=== PATIENT | female | born 1970 | race Two or more races ===

== ENCOUNTER 2020-10-04 09:32 | Emergency (ER) | payer OTHER ==
[~2020-10-04] VITALS: Ht 152.4 cm; Wt 75.5 kg
[2020-10-04] MEDS ORDERED: MECLIZINE HCL 12.5 MG TABLET. PO ONE (10:45)
[2020-10-04 11:09] LABS: BASO % 0 % (0-3); EOS # 0.1 x10^3/uL (0.0-0.7); EOS % 1 % (0-3); HEMATOCRIT 44.2 % (36.0-47.0); HEMOGLOBIN 14.9 g/dL (12.0-15.5); LYMPH # 2.4 x10^3/uL (1.0-4.8); LYMPH % 31 % (24-48); MEAN CORPUSCULAR HEMOGLOBIN 33 pg (25-35); MEAN CORPUSCULAR HGB CONC 34 g/dL (31-37); MEAN CORPUSCULAR VOLUME 97 fL (79-100); MONO # 0.6 x10^3/uL (0.0-1.1); MONO % 7 % (0-9); NEUT # 4.5 x10^3/uL (1.8-7.7); NEUT % 60 % (31-73); PLATELET COUNT 260 x10^3/uL (140-400); RED BLOOD COUNT 4.57 x10^6/uL (3.50-5.40); RED CELL DISTRIBUTION WIDTH 12.9 % (11.5-14.5); WHITE BLOOD COUNT 7.6 x10^3/uL (4.0-11.0)
[2020-10-04 11:09] LABS: BARBITURATES NEG (NEG); BENZODIAZEPINES NEG (NEG); CANNABINOIDS NEG (NEG); COCAINE NEG (NEG); METHADONE NEG (NEG); OPIATES NEG (NEG); PHENCYCLIDINE NEG (NEG)
[2020-10-04 11:11] LABS: AMPHETAMINE/METHAMPHETAMINE NEG (NEG)
--- NOTE | 2020-10-04 11:13 | RAD ---
INDICATION: Reason: dizziness / Spl. Instructions: / History: COMPARISON: None. FINDINGS: Single view of chest obtained. Mild interstitial prominence lung bases Cardiac silhouette is unremarkable. Degenerative changes the spine. IMPRESSION: * Minimal interstitial prominence at the lung bases. Could be from atelectasis with infiltrate in th e differential as well. Electronically signed by: Broderick Bragg MD (10/04/2020 11:10 AM) [id number]
[2020-10-04 11:29] LABS: CALCIUM 9.3 mg/dL (8.5-10.1); CREATININE 0.8 mg/dL (0.6-1.0); GFR 76.2; POTASSIUM 3.7 mmol/L (3.5-5.1)
[2020-10-04 11:34] LABS: ALBUMIN 4.6 g/dL (3.4-5.0); ALBUMIN/GLOBULIN RATIO 1.2 (1.0-1.7); MAGNESIUM 2.4 mg/dL (1.8-2.4); TOTAL BILIRUBIN 0.3 mg/dL (0.2-1.0); TOTAL PROTEIN 8.6 g/dL (6.4-8.2)
--- NOTE | 2020-10-04 11:36 | RAD ---
CT HEAD/BRAIN WO History: Dizziness Comparison: None. Technique: Noncontrast CT imaging was performed of the head. Findings: No intracranial hemorrhage. No mass effect. No hydrocephalus. No evidence of territorial infarction. Imaged orbits are unremarkable. Imaged paranasal sinuses and mastoid air cells are clear. No acute ca lvarial fracture. Impression: 1. No acute intracranial abnormality. ----- Exposure: One or more of the following individualized dose reduction techniques were utilized for thi s examination: 1. Automated exposure control 2. Adjustment of the mA and/or kV according to patient size 3. Use of iterative reconstruction technique. Electronically signed by: Ryan Carlson MD (10/04/2020 11:33 AM) [id number]
[2020-10-04 12:53] VITALS: BP 134/83
--- NOTE | 2020-10-04 13:00 | PHYS DOC ---
Past Medical History Past Medical History: Diabetes-Type II, High Cholesterol, Hypertension, Other Additional Past Medical Histor: MENOPAUSE Past Surgical History: No Surgical History Smoking Status: Former Smoker Alcohol Use: Occasionally General Adult EDM: Chief Complaint: DIZZY/LIGHT HEADED HPI: HPI: Patient is a 50 year old female with history of diabetes type 2, hypertension, high cholesterol, who presents to the ED today complaining of dizziness for 2 days and cough for 1 week. Patient denies anything specifically exacerbating or relieving her dizziness. Denies any fever. She states she received Covid vaccine by [email or web address]. Last dose 2 months ago. Denies any shortness of breath. D enies any use of hormones. Denies any unilateral leg pain, denies any recent hospitalizations or trauma, denies any hemoptysis. Review of Systems: Review of Systems: Constitutional: Denies fever or chills. [] Eyes: Denies change in visual acuity. [] HENT: Denies nasal congestion or sore throat. [] Respiratory: Reports cough, denies shortness of breath. [] Cardiovascular: Denies chest pain or edema. [] GI: Denies abdominal pain, nausea, vomiting, bloody stools or diarrhea. [] : Denies dysuria. [] Musculoskeletal: Denies back pain or joint pain. [] Integument: Denies rash. [] Neurologic: Reports dizziness. Denies headache, focal weakness or sensory changes. [] Psychiatric: Denies depression or anxiety. [] Heart Score: C/O Chest Pain: N/A Risk Factors: Risk Factors: DM, Current or recent (<one month) smoker, HTN, HLP, family history of CAD, obesity. Risk Scores: Score 0 - 3: 2.5% MACE over next 6 weeks - Discharge Home Score 4 - 6: 20.3% MACE over next 6 weeks - Admit for Clinical Observation Score 7 - 10: 72.7% MACE over next 6 weeks - Early Invasive Strategies Current Medications: Current Medications Medications (Trade) Dose Ordered Sig/Ivan Start Time Stop Time Status Last Admin Dose Admin Meclizine HCl (Antivert) 12.5 mg 1X ONCE 10/04/20 10:45 10/04/20 10:46 DC 10/04/20 10:57 12.5 MG Allergies: Allergies: Allergies Coded Allergies Type Severity Reaction Last Updated Verified No Known Drug Allergies 10/04/20 No Physical Exam: PE: Constitutional: Well developed, well nourished, no acute distress, non-toxic appearance. [] HENT: Normocephalic, atraumatic, bilateral external ears normal, oropharynx [address], no oral exudates, nose normal. [] Eyes: PERRLA, EOMI, conjunctiva normal, no discharge. [] Neck: Normal range of motion, no tenderness, supple, no stridor. [] Cardiovascular:Heart rate regular rhythm, no murmur [] Lungs & Thorax: Bilateral breath sounds clear to auscultation [] Abdomen: Bowel sounds normal, soft, no tenderness, no masses, no pulsatile masses. [] Skin: Warm, dry, no erythema, no rash. [] Back: No tenderness, no CVA tenderness. [] Extremities: No tenderness, no cyanosis, no clubbing, ROM intact, no edema. [] Neurologic: Alert and oriented X 3, normal motor function, normal sensory function, no focal deficits noted. Cranial nerves II through XII intact Psychologic: Affect normal, judgement normal, mood normal. [] Current Patient Data: Labs: Laboratory Tests Test 10/04/20 10:27 10/04/20 10:31 10/04/20 10:55 Urine Opiates Screen Neg (NEG) Urine Methadone Screen Neg (NEG) Urine Barbiturates Neg (NEG) Urine Phencyclidine Screen Neg (NEG) Urine Amphetamine/Methamphetamine Neg (NEG) Urine Benzodiazepines Screen Neg (NEG) Urine Cocaine Screen Neg (NEG) Urine Cannabinoids Screen Neg (NEG) Urine Ethyl Alcohol Neg (NEG) Glucose (Fingerstick) 149 mg/dL (70-99) H White Blood Count 7.6 x10^3/uL (4.0-11.0) Red Blood Count 4.57 x10^6/uL (3.50-5.40) Hemoglobin 14.9 g/dL (12.0-15.5) Hematocrit 44.2 % (36.0-47.0) Mean Corpuscular Volume 97 fL (79-100) Mean Corpuscular Hemoglobin 33 pg (25-35) Mean Corpuscular Hemoglobin Concent 34 g/dL (31-37) Red Cell Distribution Width 12.9 % (11.5-14.5) Platelet Count 260 x10^3/uL (140-400) Neutrophils (%) (Auto) 60 % (31-73) Lymphocytes (%) (Auto) 31 % (24-48) Monocytes (%) (Auto) 7 % (0-9) Eosinophils (%) (Auto) 1 % (0-3) Basophils (%) (Auto) 0 % (0-3) Neutrophils # (Auto) 4.5 x10^3/uL (1.8-7.7) Lymphocytes # (Auto) 2.4 x10^3/uL (1.0-4.8) Monocytes # (Auto) 0.6 x10^3/uL (0.0-1.1) Eosinophils # (Auto) 0.1 x10^3/uL (0.0-0.7) Basophils # (Auto) 0.0 x10^3/uL (0.0-0.2) Sodium Level 140 mmol/L (136-145) Potassium Level 3.7 mmol/L (3.5-5.1) Chloride Level 103 mmol/L (98-107) Carbon Dioxide Level 28 mmol/L (21-32) Anion Gap 9 (6-14) Blood Urea Nitrogen 11 mg/dL (7-20) Creatinine 0.8 mg/dL (0.6-1.0) Estimated GFR (Cockcroft-Gault) 76.2 BUN/Creatinine Ratio 14 (6-20) Glucose Level 145 mg/dL (70-99) H Calcium Level 9.3 mg/dL (8.5-10.1) Magnesium Level 2.4 mg/dL (1.8-2.4) Total Bilirubin 0.3 mg/dL (0.2-1.0) Aspartate Amino Transferase (AST) 7 U/L (15-37) L Alanine Aminotransferase (ALT) 26 U/L (14-59) Alkaline Phosphatase 93 U/L (46-116) Troponin I Quantitative < 0.017 ng/mL (0.000-0.055) AD-Xyb-G-Type Natriuretic Peptide 71 pg/mL (0-124) Total Protein 8.6 g/dL (6.4-8.2) H Albumin 4.6 g/dL (3.4-5.0) Albumin/Globulin Ratio 1.2 (1.0-1.7) Thyroid Stimulating Hormone (TSH) 0.384 uIU/mL (0.358-3.74) Laboratory Tests 10/04/20 10:55 Laboratory Tests 10/04/20 10:55 Vital Signs: Vital Signs Date Time Temp Pulse Resp B/P (MAP) Pulse Ox O2 Delivery O2 Flow Rate FiO2 10/04/20 10:21 98.6 79 17 99/ 98 Room Air 98.6 EKG: EK interpreted by Dr. Cobb sinus rhythm heart rate 87 no STEMI [] Radiology/Procedures: Radiology/Procedures: []PROCEDURE: CT HEAD WO CONTRAST CT HEAD/BRAIN WO History: Dizziness Comparison: None. Technique: Noncontrast CT imaging was performed of the head. Findings: No intracranial hemorrhage. No mass effect. No hydrocephalus. No evidence of territorial infarction. Imaged orbits are unremarkable. Imaged paranasal sinuses and mastoid air cells are clear. No acute calvarial fracture. Impression: 1. No acute intracranial abnormality. ----- Exposure: One or more of the following individualized dose reduction techniques were utilized for this examination: 1. Automated exposure control 2. Adjustment of the mA and/or kV according to patient size 3. Use of iterative reconstruction technique. Electronically signed by: Ryan Eng MD (10/04/2020 11:33 AM) [id number] DICTATED and SIGNED BY: RYAN ENG MD DATE: 10/04/20 [id number] 0 PROCEDURE: PORTABLE CHEST 1V INDICATION: Reason: dizziness / Spl. Instructions: / History: COMPARISON: None. FINDINGS: Single view of chest obtained. Mild interstitial prominence lung bases Cardiac silhouette is unremarkable. Degenerative changes the spine. IMPRESSION: * Minimal interstitial prominence at the lung bases. Could be from atelectasis with infiltrate in the differential as well. Electronically signed by: Monet Mckoy MD (10/04/2020 11:10 AM) [id number] DICTATED and SIGNED BY: MONET MCKOY MD DATE: 10/04/20 [id number] 0 Course & Med Decision Making: Course & Med Decision Making Pertinent Labs and Imaging studies reviewed. (See chart for details) This is a 50-year-old female patient presented to the ED today complaining of dizziness for 2 days and cough for 1 week. CBC no acute findings, CMP with glucose of 145, history of diabetes type 2. CT of the head and chest x-rays were negative for any acute findings. Orthostatic vitals were done which were negative Stroke scale is negative, PERC score and Wells score are negative Patient is in no distress, feeling better after IV fluids and meclizine. Discharge to home. Follow-up with PCP. Tish Disclaimer: Tish Disclaimer: This electronic medical record was generated, in whole or in part, using a voice recognition dictation system. PERC Rule for PE PERC Rule for PE Response (Comments) Value Age > 50: No 0 HR > 100: No 0 Sa02 on room air <95%: No 0 Unilateral leg swelling: No 0 Hemoptysis: No 0 Recent surgery or trauma: No 0 Prior PE or DVT: No 0 Hormone use: No 0 Total 0 Departure Departure Impression: Primary Impression: Dizziness Additional Impression: Cough Disposition: 01 HOME / SELF CARE / HOMELESS Condition: STABLE Referrals: NO PCP (PCP) follow up with your doctor next week Patient Instructions: Cough, Adult, [id number], Dizziness, [id number] Additional Instructions: You were evaluated in the emergency room, your CT of the head and chest x-ray were negative for any acute findings, your blood glucose is running slightly high. Ensure you are taking your diabetes medicine. We sent you home on meclizine, use it as needed for dizziness. Follow-up with your primary care doctor in the course of this week. Scripts Benzonatate (TESSALON PERLE) 100 Mg Capsule 1 CAP PO TID, #30 CAP Prov: JULIETA MENJIVAR APRN 10/04/20 Meclizine Hcl (MECLIZINE HCL) 12.5 Mg Tablet 1 TAB PO BID, #30 TAB Prov: JULIETA MENJIVAR APRN 10/04/20 JULIETA MENJIVAR WARRANTY ADMINISTRATOR Oct 04, 2020 13:00
[2020-10-04] MEDS ORDERED: MECL12.582 PO (13:10)
[2020-10-04] MEDS ORDERED: BENZ100C PO (13:10)
[2020-10-04 13:11] LABS: BILIRUBIN,URINE NEGATIVE (NEG); CLARITY,URINE CLEAR; COLOR,URINE YELLOW; NITRITE,URINE NEGATIVE (NEG); PROTEIN,URINE NEGATIVE (NEG-TRACE); UROBILINOGEN,URINE 0.2 mg/dL (0.2 mg/dL)
[2020-10-04 13:22] LABS: BACTERIA,URINE 0 /HPF (0-FEW); RBC,URINE 0 /HPF (0-2); WBC,URINE OCC /HPF (0-4)
--- NOTE | 2020-10-04 18:48 | EKG ---
[facility] [address] [place] [address] Test Date: 2020-10-04 Test Time: 10:27:35 Pat Name: JHONY MELCHOR Department: Room: Gender: F [employer]: : 1970 Requested By: JULIETA MENJIVAR Order Number: [id number] Reading MD: Measurements Intervals [place] Rate: 77 P: 38 IA: 144 QRS: 15 QRSD: 82 T: 65 QT: 396 QTc: 450 Interpretive Statements SINUS RHYTHM QRS(T) CONTOUR ABNORMALITY CONSIDER ANTEROLATERAL MYOCARDIAL DAMAGE POSSIBLY ABNORMAL ECG RI6.01 No previous ECG available for comparison
== END 2020-10-04 13:20 | disposition home or self-care (01) ==
LOC: ER 09:32
DX: R42 Dizziness and giddiness (principal); R05 Cough; E11.9 Type 2 diabetes mellitus without complications; E78.00 Pure hypercholesterolemia, unspecified; I10 Essential (primary) hypertension; Z87.891 Personal history of nicotine dependence
CPT/HCPCS: 36415; 70450; 71045; 80053; 80307; 81001; 82962; 83735; 83880; 84443; 84484; 85025; 93005; 99285; J8597